=== PATIENT | male | born 1935 | race Caucasian/White ===

== ENCOUNTER 2024-11-17 11:11 | Day surgery (SDC) | payer MEDICARE ==
[2024-11-17] VITALS (14 sets, daily range): BP systolic 142–208; BP diastolic 79–93
[~2024-11-17] VITALS: Ht 180.3 cm; Wt 88.2 kg
[~2024-11-17 11:11] MED LIST: ASPI325; ATOR80 PO; Aspir 8181 MG; IBUP200 PO; LIVALO1 MG; METO25ER PO; Mepivacaine MPF 2% Inj 20 ML Vial INJ SCH; NITR.6SL SL; PANT40 PO; PRAVASTATIN SOD10 MG
[2024-11-17] MEDS ORDERED: Ropivacaine 0.5% HCl/Pf 123.125 MG,EPINEPHrine HCL 0.25 MG,Ketorolac Tromethamine 15 MG... INFIL SCH (11:30)
[2024-11-17] MEDS ORDERED: Tranexamic Acid 100 ML IV SCH (11:30)
[2024-11-17] MEDS ORDERED: Chlorhexidine Mouth Care 15 ML UDC MT SCH (11:30)
[2024-11-17] MEDS ORDERED: CeFAZolin Sodium 2,000 MG in NS 100 ML IV SCH ×2 (11:30→23:00)
[2024-11-17] MEDS ORDERED: ASPI81CH PO (12:31)
[2024-11-17] MEDS ORDERED: ASPI325 PO (12:31)
[2024-11-17] MEDS ORDERED: JARDIANCE10 MG PO (12:33)
[2024-11-17] MEDS ORDERED: METO25ER PO (12:33)
[2024-11-17] MEDS ORDERED: Ondansetron HCl 2 MG / ML 2ML Vial IV PRN ×2 (12:50→16:35)
[2024-11-17] MEDS ORDERED: Metoclopramide HCl 5MG / ML 2ML Vial IV PRN (12:50)
[2024-11-17] MEDS ORDERED: Magnesium Hydroxide Conc 10 ML UDC PO PRN (12:50)
[2024-11-17] MEDS ORDERED: HYDROmorphone HCl/Pf 1MG SYR IV PRN ×2 (12:50→16:35)
--- NOTE | 2024-11-17 13:00 | NUR ---
AMBULATORY INTO SDS. PT TEJON, BUT A&OX3. PT DENIES PAIN OR ANXIETY. HISTORY AND ALLERGIES REVIEWED. LUNGS CLEAR-SATS>90% ON RA. PT DENIES SOB OR COUGH. NPO STATUS CONFIRMED. CHLORHEXIDINE SHOWER AND WIPE X 2. PT CLOTHING AND CANE UNDER GURNEY.
[2024-11-17] MEDS ORDERED: Rocuronium Bromide 10 MG/ML 5ML Injection IV ONE (14:30)
[2024-11-17] MEDS ORDERED: FentaNYL Citrate 50 MCG/ML 2 ML Injection ONE ×2 (14:30→16:04)
[2024-11-17] MEDS ORDERED: Ondansetron HCl 2 MG / ML 2ML Vial ONE (14:32)
[2024-11-17] MEDS ORDERED: Dexamethasone Sod Phos 10 MG/ML 1ML VIAL ONE (14:32)
[2024-11-17] MEDS ORDERED: Ketorolac Tromethamine 30mg Vial ONE (14:32)
[2024-11-17] MEDS ORDERED: Phenylephrine HCl 100 MCG/ML-NS 10MLSYR (1MG/10ML) ONE (14:58)
[2024-11-17] MEDS ORDERED: HYDROmorphone HCl/Pf 1MG SYR ONE ×2 (15:17→17:05)
[2024-11-17] MEDS ORDERED: Sugammadex Sodium 200 MG/2ML SDV (100 MG/ML) ONE (16:31)
[2024-11-17] MEDS ORDERED: Labetalol HCL 5 MG/ML 4ML Injection (Single Dose) IV PRN (16:35)
[2024-11-17] MEDS ORDERED: FentaNYL Citrate 50 MCG/ML 2 ML Injection IV PRN ×2 (16:35)
[2024-11-17] MEDS ORDERED: HydrALAZINE HCl 20 MG / ML 1ML Vial ONE (17:06)
[2024-11-17] MEDS ORDERED: Ketorolac Tromethamine 15mg Vial IV SCH (18:00)
--- NOTE | 2024-11-17 18:15 | NUR ---
ARRIVAL NOTE: PT ARRIVES TO SURGICAL UNIT VIA BED AT APPROX 1740. PT DENIES PAIN AND NAUSEA. SEE EXT RECOVERY ASSESSMENT. CALL LIGHT IN REACH.
[2024-11-18 03:34] VITALS: BP 132/75
[2024-11-18 04:41] LABS: BASOPHILS ABSOLUTE AUTO 0.01 K/mm3 (0.00-0.23); BASOPHILS PERCENT AUTO 0 % (0-2); EOSINOPHILS ABSOLUTE AUTO 0.00 K/mm3 (0.00-0.68); EOSINOPHILS PERCENT AUTO 0 % (0-6); Hematocrit 35.6 % (37.0-53.0); Hemoglobin 11.7 g/dL (13.5-17.5); IMMATURE GRAN ABSOLUTE AUTO 0.02 K/mm3 (0.00-0.10); IMMATURE GRAN PERCENT AUTO 0 % (0-1); LYMPHOCYTES ABSOLUTE AUTO 0.79 K/mm3 (0.84-5.20); LYMPHOCYTES PERCENT AUTO 9 % (21-46); MONOCYTES ABSOLUTE AUTO 0.36 K/mm3 (0.16-1.47); MONOCYTES PERCENT AUTO 4 % (4-13); Mean Corpuscular HGB Conc 32.9 g/dL (31.5-36.5); Mean Corpuscular Volume 95 fL (80-100); NEUTROPHILS ABSOLUTE AUTO 7.65 K/mm3 (1.96-9.15); NEUTROPHILS PERCENT AUTO 87 % (41-73); NRBC ABSOLUTE 0.00 K/mm3 (0.00-0.02); NRBC Auto 0.0 /100 WBC (0.0-0.2); Platelet Count 272 K/mm3 (150-400); RDW Coefficient Variation 13.1 % (11.7-14.2); RDW Standard Deviation 46.1 fL (35.1-46.3)
[2024-11-18 05:09] LABS: Anion Gap 10.0 mmol/L (3-11); Blood Urea Nitrogen 17.0 mg/dL (8-24); CO2, Blood 26.0 mmol/L (21-32); Calcium, Blood 10.2 mg/dL (8.5-10.1); Chloride, Blood 106.0 mmol/L (98-108); Creatinine, Blood 1.05 mg/dL (0.60-1.20); Glucose, Blood 153.0 mg/dL (70-99); Potassium, Blood 4.7 mmol/L (3.5-5.5); Sodium, Blood 137.0 mmol/L (136-145)
--- NOTE | 2024-11-18 06:29 | NUR ---
SHIFT SUMMARY PT S/P LEFT TOTAL KNEE. PT HAS DONE WELL OVERNIGHT, HE HAS BEEN UP AND AMBULATING, VOIDING AND TOLERATING PO INTAKE. PT REPORTS MINIMAL PAIN. PAIN MANAGED WITH SCHEDULED TYLENOL/TORADOL. POST OP VITALS STABLE. SURGICAL SITE WNL. BED IN LOWEST POSITION, CALL LIGHT WITHIN REACH.
[2024-11-18 07:03] VITALS: BP 134/76
--- NOTE | 2024-11-18 12:37 | NUR ---
DISCHARGE PT HAS WORKED w/ THERAPY. PAIN WELL CONTROLLED. EATING, DRINKING, & VOIDING WELL. POLAR PACK SENT w/ PT. ESCORTED OUT VIA W/C.
== END 2024-11-18 12:40 | disposition home or self-care (01) ==
LOC: ORSCMMR 11:11 → ORD 12:30 → SURS 17:34 → ORSCMMR 11-18 12:40
PROVIDERS: Orthopaedic Surgery
PROC: 0SRD0JA Replacement of Left Knee Joint with Synthetic Substitute, Uncemented, Open Approach (ICD-10-PCS; principal; 2024-11-17 12:30)
DX: M17.12 Unilateral primary osteoarthritis, left knee (principal); I10 Essential (primary) hypertension; I25.10 Atherosclerotic heart disease of native coronary artery without angina pectoris; K21.9 Gastro-esophageal reflux disease without esophagitis; E78.5 Hyperlipidemia, unspecified; F32.A Depression, unspecified; M41.9 Scoliosis, unspecified; Z79.899 Other long term (current) drug therapy; Z79.82 Long term (current) use of aspirin
CPT/HCPCS: 36415; 73560-LT; 80048; 85025; 97110; 97116; 97161; 97530; A9270; C1713; C1776; J0166; J0360; J0670; J0690; J0735; J1100; J1171; J1885; J2371; J2405; J2704; J2795; J3010; J7120

== ENCOUNTER 2024-11-21 22:57 | Inpatient (IN) | payer MEDICARE ==
[~2024-11-21] VITALS: Ht 180.3 cm; Wt 90.7 kg
[~2024-11-21 22:57] MED LIST changes: +ASPI325 PO; +ASPI81CH PO; +JARDIANCE10 MG PO; -Mepivacaine MPF 2% Inj 20 ML Vial INJ SCH
[2024-11-21 23:18] LABS: BASOPHILS ABSOLUTE AUTO 0.04 K/mm3 (0.00-0.23); BASOPHILS PERCENT AUTO 1 % (0-2); EOSINOPHILS ABSOLUTE AUTO 0.18 K/mm3 (0.00-0.68); EOSINOPHILS PERCENT AUTO 2 % (0-6); Hematocrit 34.6 % (37.0-53.0); Hemoglobin 11.2 g/dL (13.5-17.5); IMMATURE GRAN ABSOLUTE AUTO 0.02 K/mm3 (0.00-0.10); IMMATURE GRAN PERCENT AUTO 0 % (0-1); LYMPHOCYTES ABSOLUTE AUTO 2.01 K/mm3 (0.84-5.20); LYMPHOCYTES PERCENT AUTO 25 % (21-46); MONOCYTES ABSOLUTE AUTO 1.03 K/mm3 (0.16-1.47); MONOCYTES PERCENT AUTO 13 % (4-13); Mean Corpuscular HGB Conc 32.4 g/dL (31.5-36.5); Mean Corpuscular Volume 94 fL (80-100); NEUTROPHILS ABSOLUTE AUTO 4.84 K/mm3 (1.96-9.15); NEUTROPHILS PERCENT AUTO 60 % (41-73); NRBC ABSOLUTE 0.00 K/mm3 (0.00-0.02); NRBC Auto 0.0 /100 WBC (0.0-0.2); Platelet Count 260 K/mm3 (150-400); RDW Coefficient Variation 13.0 % (11.7-14.2); RDW Standard Deviation 44.8 fL (35.1-46.3)
[2024-11-21 23:31] LABS: Alanine Aminotransfer (ALT/SGP 22.0 U/L (12-78); Albumin, Blood 3.1 g/dL (3.4-5.0); Albumin/Globulin Ratio 0.8 (0.8-1.8); Anion Gap 9.0 mmol/L (3-11); Aspartate Aminotrans (AST/SGOT 32.0 U/L (12-37); Bilirubin, Total 0.8 mg/dL (0.1-1.0); Blood Urea Nitrogen 21.0 mg/dL (8-24); CO2, Blood 26.0 mmol/L (21-32); Calcium, Blood 10.6 mg/dL (8.5-10.1); Chloride, Blood 105.0 mmol/L (98-108); Creatinine, Blood 0.89 mg/dL (0.60-1.20); Globulin, Blood 3.7 g/dL (2.2-4.0); Glucose, Blood 104.0 mg/dL (70-99); Potassium, Blood 4.1 mmol/L (3.5-5.5); Sodium, Blood 136.0 mmol/L (136-145); Total Protein, Blood 6.8 g/dL (6.4-8.2)
[2024-11-21] MEDS ORDERED: Ondansetron HCl 2 MG / ML 2ML Vial IV PRN (23:45)
[2024-11-22] MEDS ORDERED: Ketorolac Tromethamine 15mg Vial IV PRN (00:35)
[2024-11-22] MEDS ORDERED: PANT40 PO (00:54)
[2024-11-22] MEDS ORDERED: METO25ER PO (00:54)
[2024-11-22] MEDS ORDERED: PREDNISOLONE ACE5 ML (00:56)
[2024-11-22] MEDS ORDERED: NS 1,000 ML IV SCH (01:00)
[2024-11-22] MEDS ORDERED: Aspir 8181 MG PO (02:01)
[2024-11-22 02:37] VITALS: BP 146/81
--- NOTE | 2024-11-22 05:46 | NUR ---
SHIFT SUMMARY PT ADMITTED TO ROOM 351 FROM ED FOR ACUTE METABOLIC ENCEPHALOPATHY. PT WITH MULTIPLE FALLS AT HOME WITH INCREASING CONFUSION AND WEAKNESS S/P L TKA. PT ORIENTED TO SELF AND , SPEAKS WITH FLIGHT OF IDEAS, AND IS HAVING VISUAL HALLUCINATIONS. PT MEDICATED FOR PAIN WITH TORADOL PER EMAR, AND KECIA WRAP AND ICE APPLIED TO LEFT KNEE FOR COMFORT. PT CANNOT EXTEND LEFT KNEE AND C/O INTENSE PAIN WHEN LEG IS LEFT STRAIGHT- SMALL PILLOW PLACED UNDER KNEE FOR COMFORT. IVF INFUSING PER ORDER. BED ALARM ON, AND CALL LIGHT WITHIN REACH.
[2024-11-22 06:22] LABS: BASOPHILS ABSOLUTE AUTO 0.05 K/mm3 (0.00-0.23); BASOPHILS PERCENT AUTO 1 % (0-2); EOSINOPHILS ABSOLUTE AUTO 0.14 K/mm3 (0.00-0.68); EOSINOPHILS PERCENT AUTO 2 % (0-6); Hematocrit 31.1 % (37.0-53.0); Hemoglobin 10.1 g/dL (13.5-17.5); IMMATURE GRAN ABSOLUTE AUTO 0.03 K/mm3 (0.00-0.10); IMMATURE GRAN PERCENT AUTO 0 % (0-1); LYMPHOCYTES ABSOLUTE AUTO 1.77 K/mm3 (0.84-5.20); LYMPHOCYTES PERCENT AUTO 24 % (21-46); MONOCYTES ABSOLUTE AUTO 0.99 K/mm3 (0.16-1.47); MONOCYTES PERCENT AUTO 13 % (4-13); Mean Corpuscular HGB Conc 32.5 g/dL (31.5-36.5); Mean Corpuscular Volume 94 fL (80-100); NEUTROPHILS ABSOLUTE AUTO 4.56 K/mm3 (1.96-9.15); NEUTROPHILS PERCENT AUTO 60 % (41-73); NRBC ABSOLUTE 0.00 K/mm3 (0.00-0.02); NRBC Auto 0.0 /100 WBC (0.0-0.2); Platelet Count 246 K/mm3 (150-400); RDW Coefficient Variation 12.9 % (11.7-14.2); RDW Standard Deviation 44.8 fL (35.1-46.3)
[2024-11-22 06:37] LABS: Magnesium, Blood 2.2 mg/dL (1.6-2.4)
[2024-11-22 06:38] LABS: Alanine Aminotransfer (ALT/SGP 19.0 U/L (12-78); Albumin, Blood 2.7 g/dL (3.4-5.0); Albumin/Globulin Ratio 0.8 (0.8-1.8); Anion Gap 10.0 mmol/L (3-11); Aspartate Aminotrans (AST/SGOT 28.0 U/L (12-37); Bilirubin, Total 0.8 mg/dL (0.1-1.0); Blood Urea Nitrogen 21.0 mg/dL (8-24); CO2, Blood 24.0 mmol/L (21-32); Calcium, Blood 10.2 mg/dL (8.5-10.1); Chloride, Blood 107.0 mmol/L (98-108); Creatinine, Blood 0.9 mg/dL (0.60-1.20); Globulin, Blood 3.3 g/dL (2.2-4.0); Glucose, Blood 100.0 mg/dL (70-99); Potassium, Blood 4.0 mmol/L (3.5-5.5); Sodium, Blood 137.0 mmol/L (136-145); Total Protein, Blood 6.0 g/dL (6.4-8.2)
[2024-11-22 07:32] VITALS: BP 149/82
[2024-11-22] MEDS ORDERED: Enoxaparin 40 MG/0.4 ML SYR SC SCH (09:00)
[2024-11-22] MEDS ORDERED: Haloperidol Lactate Inj. 5 MG/ML Injection IV ONE (13:15)
[2024-11-22] MEDS ORDERED: Haloperidol Lactate Inj. 5 MG/ML Injection IM ONE (13:30)
[2024-11-22 15:58] VITALS: BP 150/88
[2024-11-22] MEDS ORDERED: Magnesium Hydroxide Conc 10 ML UDC PO PRN (16:00)
[2024-11-22 16:27] LABS: Source, Urine Clean Catch
[2024-11-22 16:30] LABS: Bilirubin, Urine Neg (Neg); Color, Urine Yellow (P-Yellow); Glucose Qualitative, Urine 4+ (Neg); Ketones, Urine 2+ (Neg); Leukocyte Esterase, Urine Neg (Neg); Protein, Urine 1+ (Neg); Specific Gravity, Urine 1.020 (1.003-1.022); Urobilinogen, Urine NORM (Normal)
--- NOTE | 2024-11-22 16:58 | NUR ---
SHIFT SUMMARY: A&O TO SELF AND SPOUSE. PT HAS GOTTEN INCREASINGLY MORE AGITATED THROUGHOUT THE SHIFT. MD AWARE. PT HAS ALSO BEEN SEEN TO BE RETAINING URINE REQUIRING THE NEED TO BE STRAIGHT CATHETERIZED. SPOUSE IN ROOM AT THIS TIME ASSISTING TO CALM THE PATIENT. BREATHING EQUAL AND NONLABORED. BED LOCKED AND IN THE LOWEST POSITION. CALL LT WITHIN REACH. BED ALARM SET FOR SAFETY.
[2024-11-22 19:34] VITALS: BP 127/62
[2024-11-22] MEDS ORDERED: Polyethylene Glycol 3350 17 gm PO SCH (21:00)
[2024-11-22] MEDS ORDERED: PrednisoLONE 1% Opth Susp 5 ML RIGHTEYE SCH (21:00)
[2024-11-23 03:57] VITALS: BP 143/82
--- NOTE | 2024-11-23 05:36 | NUR ---
SHIFT SUMMARY PT NOT COOPERATIVE WITH CARE. REFUSING MEDICATIONS, PULLED OUT IV, REFUSED MULTIPLE ATTEMPTS TO REINSERT IV- INTENSIVE CARE NURSE PROVIDER AWARE. PT RETAINING URINE- STRAIGHT CATH'D X1 PER ORDER. IM ZYPREXA USED PRIOR TO STRAIGHT CATH AND ADDITIONAL STAFF MEMBER REQUIRED FOR SAFETY IN STRAIGHT CATH. PT SLEEPING LONG INTERVALS DURING THE NIGHT. CONTINUES TO BE ORIENTED TO SELF ONLY AND UNABLE TO REORIENT PT TO PLACE AND/OR SITUATION. LEFT LEG APPEARS INCREASINGLY BRUISED THIS SHIFT. PT REFUSING ICE PACK, AND SPENT MUCH TIME SLEEPING PRONE. CALL LIGHT WITHIN REACH AND BED ALARM ON FOR SAFETY.
[2024-11-23 07:18] VITALS: BP 149/82
[2024-11-23 15:50] VITALS: BP 129/84
--- NOTE | 2024-11-23 18:09 | NUR ---
SHIFT SUMMARY A&OX3 THIS SHIFT, PLEASANT AND COOPERATIVE W/CARES, VSS, MEDICATED X1 FOR C/O L LEG PAIN 08/25 (TYLENOL EFFECTIVE), VOIDING W/URINAL ASSIST, BED ALARM ACTIVE, USING CALL LIGHT APPROPIATELY, EATING DINNER AT THIS TIME, CALL LIGHT IN REACH, WILL CONT TO MONITOR UNTIL REPORT GIVEN TO ONCOMING NURSE.
[2024-11-23 19:19] VITALS: BP 142/74
[2024-11-24 04:31] VITALS: BP 170/100
[2024-11-24 05:00] VITALS: BP 176/91
--- NOTE | 2024-11-24 05:49 | NUR ---
SHIFT SUMMARY A&OX3 AT START OF SHIFT. PT BECAME MORE CONFUSED THE NIGHT WENT ON AND TALK BECAME NON-SENSICAL. PT PLEASANT AND EASILY REDIRECTED. USES CALL LIGHT. INCONTINENT OF BLADDER AND CHANGED FREQUENTLY NEEDED. PT CURRENTLY IN BED AT LOWEST POSITION WITH RAILS X2 AND CALL LIGHT WITHIN REACH.
[2024-11-24 13:34] VITALS: BP 143/80
[2024-11-24 15:09] VITALS: BP 147/78
--- NOTE | 2024-11-24 17:44 | NUR ---
SHIFT SUMMARY PT WOKE VERY CONFUSED, UNABLE TO FOLLOW INSTRUCTIONS, AND HAVING VISUAL AND AUDITORY HALLUCINATIONS. DURING BREAKFAST PATIENT WAS USING HIS HANDS TO EAT YOUGURT, UNABLE TO MANIPULATE HIS SPOON. MD NOTIFIED OF CONCERNS, PT WAS A&OX3-4 PREVIOUS DAY AND ABLE TO CARRY ON CONVERSATIONS. PT HAS BEEN SLEEPING T/O MOST OF SHIFT, UP TO BSC & RECLINER W/2P MAX STAND PIVOT XFER. SLEEPING IN RECLINER AT THIS TIME ON CHAIR ALARM, FAMILY AT BEDSIDE, CALL LIGHT IN REACH, WILL CONT TO MONITOR UNTIL REPORT GIVEN TO ONCOMING NURSE.
[2024-11-24 20:06] VITALS: BP 135/69
[2024-11-25 04:37] VITALS: BP 123/89
--- NOTE | 2024-11-25 05:17 | NUR ---
SHIFT SUMMARY A&OX1 TO SELF ONLY. CONFUSED AND FORGETFUL. VERY PAINFUL AND STIFF WITH TRANSFER. TRANSFER TOOK 2-3 PERSON ASSIST WITH PIVOT FROM CHAIR TO BED. PT CONTINUES TO HAVE CHRONIC PAIN IN BACK. MEDICATED PER EMAR AND REPOSITIONED FOR COMFORT. REPOSITIONING WORKED WELL TO MANAGE PAIN. PT IS INCONTINENT OF B & B. PT WAS ABLE TO HAVE A BM AND WAS CHANGED APPROPRIATELY. LEFT KNEE KECIA WRAP REMOVED TO ASSESS SITE. SURGICAL DRESSINGS C/D/I WITH SMALL PENCIL SIZED BLOOD COLORED DRAINAGE SHOWING.NO REDNESS BUT LEFT KNEE IS VERY WARM TO THE TOUCH AND SWELLING C/W KNEE REPLACEMENT PRESENT. WILL REPORT TO DAY SHIFT NURSE FOR FURTHER ASSESSMENT DUE TO WARMTH. CURRENTLY PT IS SLEEPING IN BED AT LOWEST POSITION WITH RAILS X2 AND CALL LIGHT WITHIN REACH.
[2024-11-25 06:31] LABS: BASOPHILS ABSOLUTE AUTO 0.05 K/mm3 (0.00-0.23); BASOPHILS PERCENT AUTO 1 % (0-2); EOSINOPHILS ABSOLUTE AUTO 0.04 K/mm3 (0.00-0.68); EOSINOPHILS PERCENT AUTO 1 % (0-6); Hematocrit 32.7 % (37.0-53.0); Hemoglobin 10.5 g/dL (13.5-17.5); IMMATURE GRAN ABSOLUTE AUTO 0.03 K/mm3 (0.00-0.10); IMMATURE GRAN PERCENT AUTO 1 % (0-1); LYMPHOCYTES ABSOLUTE AUTO 0.82 K/mm3 (0.84-5.20); LYMPHOCYTES PERCENT AUTO 14 % (21-46); MONOCYTES ABSOLUTE AUTO 0.96 K/mm3 (0.16-1.47); MONOCYTES PERCENT AUTO 17 % (4-13); Mean Corpuscular HGB Conc 32.1 g/dL (31.5-36.5); Mean Corpuscular Volume 95 fL (80-100); NEUTROPHILS ABSOLUTE AUTO 3.89 K/mm3 (1.96-9.15); NEUTROPHILS PERCENT AUTO 67 % (41-73); NRBC ABSOLUTE 0.00 K/mm3 (0.00-0.02); NRBC Auto 0.0 /100 WBC (0.0-0.2); Platelet Count 315 K/mm3 (150-400); RDW Coefficient Variation 13.3 % (11.7-14.2); RDW Standard Deviation 46.6 fL (35.1-46.3)
[2024-11-25 06:44] LABS: Alanine Aminotransfer (ALT/SGP 21.0 U/L (12-78); Albumin, Blood 2.7 g/dL (3.4-5.0); Albumin/Globulin Ratio 0.8 (0.8-1.8); Anion Gap 7.0 mmol/L (3-11); Aspartate Aminotrans (AST/SGOT 22.0 U/L (12-37); Bilirubin, Total 0.7 mg/dL (0.1-1.0); Blood Urea Nitrogen 21.0 mg/dL (8-24); CO2, Blood 27.0 mmol/L (21-32); Calcium, Blood 9.9 mg/dL (8.5-10.1); Chloride, Blood 108.0 mmol/L (98-108); Creatinine, Blood 1.03 mg/dL (0.60-1.20); Globulin, Blood 3.4 g/dL (2.2-4.0); Glucose, Blood 96.0 mg/dL (70-99); Potassium, Blood 4.2 mmol/L (3.5-5.5); Sodium, Blood 138.0 mmol/L (136-145); Total Protein, Blood 6.1 g/dL (6.4-8.2)
[2024-11-25 07:43] VITALS: BP 137/76
--- NOTE | 2024-11-25 19:17 | NUR ---
SHIFT SUMMARY PATIENT A/OX3, ABLE TO MAKE NEEDS KNOWN. PLEASANT AND COOPERATIVE WITH CARE. PATIENT PLEASANTLY CONFUSED, BUT EASY TO REORIENT. FAMILY AT BEDSIDE THROUGHOUT THE SHIFT. ORTHO CONSULTED FOR LEFT KNEE REPLACEMENT, STATUS POST OP. DR. BRO PRESENT DURING DRESSING CHANGE TO ASSESS INCISION SITE, INCISION APPROXIMATED, MINIMAL SEROSANGUINOUS DRAINAGE TO PREVIOUS DRESSING. SITE IS HOT TO TOUCH, NO REDNESS NOTED. WOUND CARE PROVIDED PER ORDER. PATIENT INCONTINENT OF BOWEL AND BLADDER THIS SHIFT. WAS ABLE TO PARTICIPATE IN OCCUPATIONAL THERAPY TODAY. NO OTHER CONCERNS AT THIS TIME, WILL CONTINUE TO MONITOR.
[2024-11-25 19:46] VITALS: BP 138/71
--- NOTE | 2024-11-25 23:21 | NUR ---
PT STARTED HAVING ALTERED NEUROLOGICAL S/S AT APPROXIMATELY 2049. PT LEFT PUPIL SLOWER TO RESPOND TO LIGHT, DIFFICULTY TOUCHING NOSE WITH LEFT ARM AND SOME LEFT ARM DROP. LEFT FACE APPEARS TO HAVE A SLIGHT DROOP WHEN ASKED TO SMILE BUT VERY SUBTLE. INFORMED MANAGED CARE MANAGER ROGELIO AND REPORTED TO DR. ESQUIVEL AND RESIDENT DOCTOR FOR EVAL. THEY PERFORMED EVAL AND STATE TO CONTINUE TO MONITOR THIS COULD BE CONTINUED DELIRIUM. DR. ESQUIVEL ORDERED MELATONIN TO HELP PT TO REST. ONCE THIS RN WAS ABLE TO PULL MELATONIN, PT FALLING ASLEEP VERY EASILY DURING CONVERSATION MULTIPLE TIMES. DUE TO CONCERN FOR INCREASED LETHARGY MELATONIN HELD AT THIS TIME. WILL CONTINUE TO MONITOR.
[2024-11-26 04:32] VITALS: BP 133/82
--- NOTE | 2024-11-26 05:10 | NUR ---
SHIFT SUMMARY A&OX1 TO SELF. DOES USE CALL LIGHT AT TIMES. HAD AN EPISODE OF SLIGHT DROOPING ON LEFT SIDE, LEFT PUPIL SLOW TO RESPOND AND LEFT ARM DROOP. DR. ESQUIVEL AND RESIDENT DOCTOR EVALUATED PT AND ORDERED MELATONIN. BY THE TIME THIS RN WAS ABLE TO PULL MEDICATION PT WOULD FALL ASLEEP IN THE MIDDLE OF CONVERSATION BUT WAS EASILY AROUSED. HELD MELATONIN DUE TO CONCERN FOR LETHARGY. DR. ESQUIVEL RECOMMENDED TO HAVE PT REST AND CONTINUE TO MONITOR. PT HAS CONTINUED TO BE LETHARGIC BUT VERY PLEASANT WITH CARE AND AROUSABLE. LEFT SIDED WEAKNESS APPEARS TO HAVE RESOLVED. HE HAS SLEPT MOST OF THE NIGHT. TEMPERATURE IS SLIGHTLY MORE ELEVATED THAN IT HAS BEEN. CONTINUING TO MONITOR AND WILL REPORT TO DAY SHIFT. LEFT KNEE DRESSING C/D/I AND STILL VERY WARM TO THE TOUCH. PROVIDER AWARE. PT CURRENTLY RESTING IN BED AT LOWEST POSITION WITH RAILS X2, HOB ELEVATED AND CALL LIGHT WITHIN REACH.
[2024-11-26 07:30] VITALS: BP 117/74
[2024-11-26 16:22] VITALS: BP 135/78
--- NOTE | 2024-11-26 18:26 | NUR ---
pt confused, attempted to climb out of bed, when staff got him back he had had a stool, he was cleaned and changed, no further changes this shift. call light in reach.
[2024-11-26 19:31] VITALS: BP 139/77
[2024-11-27 04:22] VITALS: BP 126/78
[2024-11-27 05:40] LABS: BASOPHILS ABSOLUTE AUTO 0.04 K/mm3 (0.00-0.23); BASOPHILS PERCENT AUTO 1 % (0-2); EOSINOPHILS ABSOLUTE AUTO 0.02 K/mm3 (0.00-0.68); EOSINOPHILS PERCENT AUTO 0 % (0-6); Hematocrit 32.0 % (37.0-53.0); Hemoglobin 10.2 g/dL (13.5-17.5); IMMATURE GRAN ABSOLUTE AUTO 0.03 K/mm3 (0.00-0.10); IMMATURE GRAN PERCENT AUTO 1 % (0-1); LYMPHOCYTES ABSOLUTE AUTO 1.97 K/mm3 (0.84-5.20); LYMPHOCYTES PERCENT AUTO 31 % (21-46); MONOCYTES ABSOLUTE AUTO 1.09 K/mm3 (0.16-1.47); MONOCYTES PERCENT AUTO 17 % (4-13); Mean Corpuscular HGB Conc 31.9 g/dL (31.5-36.5); Mean Corpuscular Volume 94 fL (80-100); NEUTROPHILS ABSOLUTE AUTO 3.28 K/mm3 (1.96-9.15); NEUTROPHILS PERCENT AUTO 51 % (41-73); NRBC ABSOLUTE 0.00 K/mm3 (0.00-0.02); NRBC Auto 0.0 /100 WBC (0.0-0.2); Platelet Count 334 K/mm3 (150-400); RDW Coefficient Variation 13.2 % (11.7-14.2); RDW Standard Deviation 46.3 fL (35.1-46.3)
--- NOTE | 2024-11-27 06:05 | NUR ---
MORTGAGE ANALYST SUMMARY PT A/OX2; FORGETFUL AND CONFUSED. PT ABLE TO STATE HIS NAME AND THAT HE IS IN A HOSPITAL--DOES NOT KNOW THE NAME OR WHY HE IS HERE. PT IS PLEASANT AND COOPERATIVE. PT'S CALLED AT START OF SHIFT--SHE REPORTS THE PT IS A/OX4 AT BASELINE AND IS CONCERNED ABOUT HIS CONFUSION. PT ROUNDED ON IN REGULAR INTERVALS AND ASSISTED WITH NUTRITION/HYDRATION WHEN AWAKE. PT HAS ONE SOFT INCONT BOWEL AND IS INCON OF URINE. BED ALARM IN PLACE PT HAS AT TIMES ATTEMPTED OOB. PT IS ANSERING QUESTIONS BUT AT TIMES SPEECH IS NON SENSICAL AND ANSWERS ARE INCONGRUENT WITH QUESTIONS. PT IS C/O OF SHARP PAIN IN LEFT INNER THIGH. BRUISING NOTED TO THE AREA. CIRCULATION INTACT. TYLENOL GIVEN.
[2024-11-27 06:23] LABS: Anion Gap 9.0 mmol/L (3-11); Blood Urea Nitrogen 26.0 mg/dL (8-24); CO2, Blood 25.0 mmol/L (21-32); Calcium, Blood 9.2 mg/dL (8.5-10.1); Chloride, Blood 106.0 mmol/L (98-108); Creatinine, Blood 0.96 mg/dL (0.60-1.20); Glucose, Blood 88.0 mg/dL (70-99); Potassium, Blood 3.8 mmol/L (3.5-5.5); Sodium, Blood 136.0 mmol/L (136-145)
[2024-11-27 07:08] VITALS: BP 121/67
[2024-11-27 17:10] VITALS: BP 110/63
--- NOTE | 2024-11-27 18:29 | NUR ---
SHIFT SUMMARY PT CONT LEVEL OF CARE. PT NOTED TO BE A&O X4 WITH SOME CONFUSION NOTED. PT IS INCONT OF BOWEL AND BLADDER. PT CONT TO NEED AX2 WITH FWW FOR AMBULATION. PT HAS BEEN UP IN CHAIR SEVERAL TIMES THIS SHIFT. PLAN IS TO GO TO SNF FOR REHAB CONT TO AWAITING PLACEMENT.
[2024-11-27 19:31] VITALS: BP 109/64
--- NOTE | 2024-11-28 03:09 | NUR ---
SHIFT SUMMARY: AOX3-4, PT WAS FORGETFUL IN THE EARLY HOURS OF THE MORNING. 2PA WITH WALKER AND GAIT BELT. DRESSING TO L KNEE IS C/D/I. NO COMPLAINTS OF PAIN THIS SHIFT. CALL LIGHT IS WITHIN REACH. BED ALARM IS ON. BED IS LOW AND LOCKED.
[2024-11-28 04:10] VITALS: BP 138/78
[2024-11-28 07:12] VITALS: BP 139/75
[2024-11-28 16:33] VITALS: BP 127/80
--- NOTE | 2024-11-28 18:23 | NUR ---
PT A/OX3. HE DOES NOT KNOW WHERE HE IS AT. PT TENDS TO SPEAK IN SENTENCES THAT ARE DIFFICULT TO MAKE SENSE OF. HE IS EASILY REDIRECTED AND COOPERATIVE WITH CARE. PT HAS BEEN ABLE TO MAKE HIS NEEDS KNOWN WELL WITH HIS CALL LIGHT TODAY. HE HAS BEEN USING HIS URINAL AND IS A 2PA W/FWW TO THE BEDSIDE COMMODE. PT RETAINS URINE SO HE WAS WAS BLADDER SCANNED AT 17:30 WHICH SHOWED 200ML OF URINE, SO HE WAS NOT STRAIGHT CATHED. NO ACUTE CHANGES THIS SHIFT.
[2024-11-28 19:23] VITALS: BP 123/66
[2024-11-29 05:21] VITALS: BP 140/70
--- NOTE | 2024-11-29 06:00 | NUR ---
SHIFT SUMMARY: PT IS AOX3, BUT FORGETFUL. VSS. AMBULATES WITH 2PA, FWW, AND GAIT BELT. PER , PT MENTATION IS BASELINE. ANTICIPATE PT GOING TO [facility] TOMORROW. CALL LIGHT IS WITHIN REACH. BED ALARM IS ON. BED IS LOW AND LOCKED.
[2024-11-29 07:38] VITALS: BP 123/88
[2024-11-29 11:52] LABS: Source, Urine Clean Catch
[2024-11-29 11:57] LABS: Bilirubin, Urine Neg (Neg); Color, Urine Yellow (P-Yellow); Glucose Qualitative, Urine 4+ (Neg); Ketones, Urine Neg (Neg); Leukocyte Esterase, Urine 2+ (Neg); Protein, Urine 2+ (Neg); Specific Gravity, Urine 1.015 (1.003-1.022); Urobilinogen, Urine 2+ (Normal)
[2024-11-29 12:51] LABS: White Blood Cells, Urine 50-100 /hpf (0-5)
[2024-11-29] MEDS ORDERED: CefTRIAXone Sodium 1,000 MG in NS 100 ML IV SCH (14:00)
[2024-11-29 15:52] VITALS: BP 114/48
--- NOTE | 2024-11-29 16:32 | NUR ---
PT A/Ox1 THIS SHIFT, ALERT TO SELF ONLY. PT WAS ALSO INCONTINENT OF VOIDS. DR WAS NOTIFIED OF ACUTE CHANGES AND A URINALYSIS WAS ORDERED WHICH CAME BACK POSITIVE FOR A UTI. EMAR HAS BEEN UPDATED.
[2024-11-29 19:26] VITALS: BP 96/53
[2024-11-30 03:33] VITALS: BP 124/71
--- NOTE | 2024-11-30 04:08 | NUR ---
SHIFT SUMMARY: AOX2-3, INTERMITENTLY CONFUSED TO PLACE. PT REQUIRES 2PA TO AMBULATE WITH FWW AND GAIT BELT. PT IS ALSO INCONTINENT TO BOTH BOWEL AND URINE. DENIES PAIN. CALL LIGHT WITHIN REACH. BED ALARM IS ON. BED IS LOW AND LOCKED.
[2024-11-30 06:18] LABS: BASOPHILS ABSOLUTE AUTO 0.04 K/mm3 (0.00-0.23); BASOPHILS PERCENT AUTO 1 % (0-2); EOSINOPHILS ABSOLUTE AUTO 0.13 K/mm3 (0.00-0.68); EOSINOPHILS PERCENT AUTO 2 % (0-6); Hematocrit 31.3 % (37.0-53.0); Hemoglobin 9.9 g/dL (13.5-17.5); IMMATURE GRAN ABSOLUTE AUTO 0.08 K/mm3 (0.00-0.10); IMMATURE GRAN PERCENT AUTO 1 % (0-1); LYMPHOCYTES ABSOLUTE AUTO 1.62 K/mm3 (0.84-5.20); LYMPHOCYTES PERCENT AUTO 28 % (21-46); MONOCYTES ABSOLUTE AUTO 0.86 K/mm3 (0.16-1.47); MONOCYTES PERCENT AUTO 15 % (4-13); Mean Corpuscular HGB Conc 31.6 g/dL (31.5-36.5); Mean Corpuscular Volume 96 fL (80-100); NEUTROPHILS ABSOLUTE AUTO 3.08 K/mm3 (1.96-9.15); NEUTROPHILS PERCENT AUTO 53 % (41-73); NRBC ABSOLUTE 0.00 K/mm3 (0.00-0.02); NRBC Auto 0.0 /100 WBC (0.0-0.2); Platelet Count 371 K/mm3 (150-400); RDW Coefficient Variation 13.2 % (11.7-14.2); RDW Standard Deviation 46.5 fL (35.1-46.3)
[2024-11-30 06:37] LABS: Anion Gap 7.0 mmol/L (3-11); Blood Urea Nitrogen 16.0 mg/dL (8-24); CO2, Blood 25.0 mmol/L (21-32); Calcium, Blood 9.4 mg/dL (8.5-10.1); Chloride, Blood 109.0 mmol/L (98-108); Creatinine, Blood 0.87 mg/dL (0.60-1.20); Glucose, Blood 109.0 mg/dL (70-99); Potassium, Blood 4.1 mmol/L (3.5-5.5); Sodium, Blood 137.0 mmol/L (136-145)
--- NOTE | 2024-11-30 07:16 | NUR ---
ASSUMED CARE OF PATIENT AT THIS TIME. PATIENT APPEARS TO BE SLEEPING AT THIS TIME.
[2024-11-30 07:28] VITALS: BP 110/58
[2024-11-30 16:09] VITALS: BP 124/67
--- NOTE | 2024-11-30 17:51 | NUR ---
PATIENT A&O X4 TODAY. WORKED WELL WITH PHYSICAL THERAPY TODAY. UP IN CHAIR FOR LUNCH AND DINNER. KNEE INCISION UNWRAPPED AND LOOKED AT, C/D/I. PATIENT REPORTS LITTLE TO NO PAIN TODAY. FAMILY AT BEDSIDE MOST OF TODAY. HOPING FOR DISCHARGE TOMORROW, WAITING ON INSURANCE AUTH.
[2024-11-30 19:20] VITALS: BP 117/74
[2024-12-01 03:51] VITALS: BP 112/75
--- NOTE | 2024-12-01 04:18 | NUR ---
SHIFT SUMMARY: AOX2-3, DISORIENTED TO PLACE. AMBULATES WITH 1-2PA AND FWW. PT IS ALSO INCONTINENT TO URINE AND STOOL. BED ALARM IS ON. CALL LIGHT IS WITHIN REACH. BED IS LOW AND LOCKED.
[2024-12-01 07:31] VITALS: BP 138/73
[2024-12-01] MEDS ORDERED: IBUP600 PO (14:50)
[2024-12-01] MEDS ORDERED: ACET325 PO (14:50)
[2024-12-01] MEDS ORDERED: Colace100 MG PO (14:50)
[2024-12-01] MEDS ORDERED: OLAN5 PO (14:51)
[2024-12-01] MEDS ORDERED: LEVFLO500 PO (14:51)
[2024-12-01] MEDS ORDERED: VISBIOME 112.51 EACH PO (14:52)
[2024-12-01] MEDS ORDERED: Sen-O-Tab8.6 MG PO (14:52)
--- NOTE | 2024-12-01 16:45 | NUR ---
PATIENT D/C'D TO [facility]. DC INSTRUCTIONS AND EDUCATION DISCUSSED WITH PATIENT AN DC PACKET SENT WITH FIXER SUPERVISOR. [facility] PATIENT DENIES ANY FUTHER QUESTIONS OR CONCERNS. BELONGINGS TAKEN DEVAN BY FAMILY.
== END 2024-12-01 16:55 | DRG 91 ==
LOC: ER 22:57 → MEDS 23:55
PROVIDERS: Emergency Medicine; Internal Medicine; Student in an Organized Health Care Education/Training Program; ADMIT Student in an Organized Health Care Education/Training Program
PROC: 0T9B7ZZ Drainage of Bladder, Via Natural or Artificial Opening (ICD-10-PCS; 2024-11-22)
PROC: 3E03329 Introduction of Other Anti-infective into Peripheral Vein, Percutaneous Approach (ICD-10-PCS; principal; 2024-11-29)
DX: G92.8 Other toxic encephalopathy (principal); G93.41 Metabolic encephalopathy; N39.0 Urinary tract infection, site not specified; F01.511 Vascular dementia, unspecified severity, with agitation; F05 Delirium due to known physiological condition; I25.10 Atherosclerotic heart disease of native coronary artery without angina pectoris; I10 Essential (primary) hypertension; E78.5 Hyperlipidemia, unspecified; R29.6 Repeated falls; R33.9 Retention of urine, unspecified; K21.9 Gastro-esophageal reflux disease without esophagitis; T40.2X5A Adverse effect of other opioids, initial encounter; R62.7 Adult failure to thrive; D64.9 Anemia, unspecified; R79.89 Other specified abnormal findings of blood chemistry; I67.2 Cerebral atherosclerosis; B96.89 Other specified bacterial agents as the cause of diseases classified elsewhere; Z96.652 Presence of left artificial knee joint; Z95.1 Presence of aortocoronary bypass graft; Z85.46 Personal history of malignant neoplasm of prostate; Z79.82 Long term (current) use of aspirin
CPT/HCPCS: 36415; 70450; 80048; 80053; 81001; 82330; 83735; 85025; 87077; 87086; 87186; 93005; 93010; 97110; 97116; 97140; 97162; 97165; 97530; 97535; 99285-25; A9270; J1630; J1650; J1885; J7030; J7120